=== PATIENT | male | born 2000 | race African-American/Black ===

== ENCOUNTER 2024-05-15 00:32 | Emergency (ER) | payer MEDICAID ==
[~2024-05-15] VITALS: Ht 180.3 cm; Wt 68.0 kg
[2024-05-15 02:00] VITALS: PULSE 53; RESP 16; TEMP 36.89184; O2SAT 99
[2024-05-15 03:34] LABS: BASOPHILS % 0.5 % (0.0-2.0); EOSINOPHILS % 1.1 % (0.0-5.0); HEMATOCRIT. 45.3 % (42.0-52.0); HEMOGLOBIN. 14.6 g/dL (14.0-18.0); MEAN CORPUSCULAR HEMOGLOBIN 27.4 pg (28.0-32.0); MEAN CORPUSCULAR HGB CONC 32.2 g/dL (31.0-37.0); MEAN CORPUSCULAR VOLUME 84.9 fL (80.0-94.0); MONOCYTES % 12.2 % (2.0-8.0); NEUTROPHILS % 21.2 % (40.0-76.0); PLATELET 213 x1000/uL (130-400); RED BLOOD CELL COUNT 5.34 mill/uL (4.7-6.1); RED CELL DISTRIBUTION WIDTH 13.8 % (11.6-14.6); WHITE BLOOD COUNT 4.8 x1000/uL (4.5-11.0)
[2024-05-15 03:40] LABS: CHLORIDE 105 mEq/L (98-107); POTASSIUM 3.6 mEq/L (3.5-5.1); SODIUM 140 mEq/L (136-145)
[2024-05-15 03:41] LABS: CARBON DIOXIDE 26 mEq/L (21-32)
[2024-05-15 03:46] LABS: GLUCOSE 86 mg/dL (70-105)
[2024-05-15 03:47] LABS: UREA NITROGEN BLOOD 14 mg/dL (9-23)
[2024-05-15 03:48] LABS: ACETAMINOPHEN < 2 ug/mL (10-30)
[2024-05-15 03:49] LABS: *AMPHETAMINES SCREEN URINE NEGATIVE (NEGATIVE); *BARBITURATES SCREEN URINE NEGATIVE (NEGATIVE); *BENZODIAZEPINES SCREEN URINE NEGATIVE (NEGATIVE); *COCAINE SCREEN URINE NEGATIVE (NEGATIVE); CANNABINOID URINE SCREEN NEGATIVE (NEGATIVE); ECSTASY MDMA SCREEN URINE NEGATIVE (NEGATIVE); METHADONE URINE SCREEN NEGATIVE (NEGATIVE); OPIATES URINE SCREEN NEGATIVE (NEGATIVE); PHENCYCLIDINE URINE SCREEN NEGATIVE (NEGATIVE)
[2024-05-15 04:14] LABS: ETHANOL BLOOD < 10 mg/dL (<10)
[2024-05-15] MEDS ORDERED: TOPUD PO (06:07)
== END 2024-05-15 06:19 | disposition home or self-care (01) ==
LOC: ER 00:32
DX: F23 Brief psychotic disorder (principal); R51.9 Headache, unspecified
CPT/HCPCS: 36415; 71045; 80048; 80305; 80307; 80320; 80329; 85025; 99284; G0480